=== PATIENT | male | born 1955 | race Caucasian/White ===

== ENCOUNTER 2018-05-27 11:50 | Emergency (ER) | payer OTHER ==
[~2018-05-27] VITALS: Ht 162.6 cm; Wt 81.6 kg
[2018-05-27 12:04] VITALS: Ht 162.6 cm; Wt 81.6 kg
[2018-05-27 15:53] VITALS: BP 157/97
== END 2018-05-27 15:53 | disposition home or self-care (01) ==
LOC: ED 11:50
DX: M25.512 Pain in left shoulder (principal); Z98.890 Other specified postprocedural states; W17.89XA Other fall from one level to another, initial encounter; Y93.89 Activity, other specified; Y92.89 Other specified places as the place of occurrence of the external cause; Y99.8 Other external cause status
CPT/HCPCS: J1100; J1885